=== PATIENT | female | born 1965 | race Caucasian/White ===

== ENCOUNTER 2016-06-01 06:22 | Day surgery (SDC) | payer OTHER ==
--- NOTE | ~2016-06-01 | OP ---
Record Of Operation [facility] [address] [place]. [address] NAME: EVANGELIST DESAI : 69 STATUS : [facility]#: [id number] AGE: 51 ADM/REG DATE : 06/01/16 MR#: [id number] REPORT SERV DATE: 06/01/16 DICTATED BY: LARY ESCOBEDO DATE: 06/01/16 REPORT STATUS : Draft TRANSCRIBED BY: MODL DATE: 06/01/16 DATE OF PROCEDURE: 06/01/2016 PREOPERATIVE DIAGNOSIS: Left breast carcinoma high-grade triple negative, to be treated with neoadjuvant chemotherapy. POSTOPERATIVE DIAGNOSIS: Left breast carcinoma high-grade triple negative, to be treated with neoadjuvant chemotherapy. PROCEDURE: Right subclavian Port-A-Cath. SURGEON: Lary Escobedo M.D. ANESTHESIA: Local with sedation. ESTIMATED BLOOD LOSS: Nil. FLUIDS: Crystalloid. SPECIMEN: None. DRAINS: None. COMPLICATIONS: None. CONDITION: Good. INDICATIONS: Ms Desai is a very pleasant 51-year-old who has been evaluated for a palpable left breast mass which has unfortunately revealed a high-grade triple negative breast CA. After review of risks, benefits, options, side effects, and Medical Oncology consultation; we are recommending proceeding with neoadjuvant chemotherapy with the patient support. We are placing Port-A-Cath to facilitate venous access. PROCEDURE IN DETAIL: After being identified in the preop holding, she was brought to OR and positioned supine. Neck and chest were prepped and draped sterilely. Ancef given intravenously. Again, we did a time-out. She was comfortably sedated and then we proceeded with the anesthesia, local, right subclavian position, with a 50 50 mixture of 0.5% Marcaine mixed equally with 1% lidocaine with epinephrine. In a head-down position, the right subclavian vein was readily accessed and on first needle pass guidewire threaded without difficulty, there was ectopy that cleared on partial wire withdrawal. Ms Desai was brought supine. Fluoroscopy brought on the field and confirmed that the guidewire was coursing into the superior vena cava and right ventricle. At this point, I made a transverse incision at guidewire exit point followed by an inferior subcutaneous pocket. Again, in a head-down position, dilator introducer was advanced over the guidewire, and the guidewire and the dilator were removed and the tubing was threaded through the introducer sheath. The tubing threaded readily. It was intentionally over threaded. There was no air aspiration. Once Record Of Operation [facility] [address] [place]. [address] NAME: EVANGELIST DESAI : 69 STATUS : [facility] PAT#: [id number] AGE: 51 ADM/REG DATE : 06/01/16 MR#: [id number] REPORT SERV DATE: 06/01/16 DICTATED BY: LARY ESCOBEDO DATE: 06/01/16 REPORT STATUS : Draft TRANSCRIBED BY: CARTER DATE: 06/01/16 the tubing was about 30 cm in, the sheath was cracked, peeled apart, and removed. Fluoroscopy was brought on the field now in supine position and confirmed that the catheter tip was in the right ventricle. We steadily withdrew the tubing until the tip was at the right atrial superior vena caval junction just inferior to the right mainstem bronchus. At this point, we clamped, the tube divided, and attached to the port followed by the anchoring collar. Port was positioned in its pocket. We surveyed now the course of the tubing throughout its course with the fluoro and there was a nice smooth course without kinks, loops, or twists. The subcutaneous tissue was closed over the port with running 3-0 Vicryl. Dermis was closed with 4-0 Monocryl followed by Mastisol and Steri-Strips. The port was accessed with its extension tubing, it aspirated blood quite nicely. It was then flushed with heparinized saline and the access was clamped and capped. Sterile occlusive dressing was applied. Ms Desai was recovered from her sedation, transported to day surgery area in good condition. Postprocedural chest x-ray was obtained and the result is pending at the time of this dictation. KAM/CARTER Lary Escobedo M.D. / [id number] CC: Lary Escobedo M.D.
[~2016-06-01 06:22] MED LIST: ADVIL PO; IBU800 PO; PREV30 PO; SIMPLY SLEEP25 MG PO
[2016-06-01 07:03] LABS: HEMATOCRIT 41.2 % (36.0-48.0); HEMOGLOBIN 14.4 g/dL (12.0-16.0)
[2016-10-14] MEDS ORDERED: Z-PAK PO (14:20)
[2016-10-14] MEDS ORDERED: KLOR-CON M2020 MEQ PO (14:22)
== END 2016-06-01 12:38 | disposition home or self-care (01) ==
LOC: SDC 06:22
PROVIDERS: Surgery
PROC: 05H533Z Insertion of Infusion Device into Right Subclavian Vein, Percutaneous Approach (ICD-10-PCS; principal; 2016-06-01 07:45)
DX: C50.912 Malignant neoplasm of unspecified site of left female breast (principal); K21.9 Gastro-esophageal reflux disease without esophagitis; Z90.49 Acquired absence of other specified parts of digestive tract; Z98.890 Other specified postprocedural states
CPT/HCPCS: 71010; 77001; 84703; 85014; 85018; C1788; J0690; J2250; J2405; J3010